=== PATIENT | female | born 1975 | race Hispanic/Latino ===

== ENCOUNTER 2020-08-26 14:51 | Emergency (ER) | payer OTHER ==
[~2020-08-26] VITALS: Ht 160 cm; Wt 68.0 kg
[2020-08-26] MEDS ORDERED: SODIUM CHLORIDE 0.9% 1000ML 1,000 ML IV STA ×2 (15:01→15:45)
[2020-08-26 15:21] LABS: BASOPHILS # (AUTO) 0.1 (0.0-0.1); BASOPHILS % 0.6 % (0.0-1.0); EOSINOPHILS % 0.1 % (0.0-6.0); HEMATOCRIT 41.9 % (34.2-44.1); HEMOGLOBIN 13.3 g/dL (12.0-16.0); LYMPHOCYTES # (AUTO) 1.9 (1.0-3.2); LYMPHOCYTES % 22.4 % (18.0-39.1); MEAN CORPUSCULAR HEMOGLOBIN 25.5 pg (28-32); MEAN CORPUSCULAR HGB CONC 31.7 g/dL (31-35); MEAN CORPUSCULAR VOLUME 80.3 fL (81-99); MONOCYTES # (AUTO) 0.4 (0.2-0.8); NEUTROPHILS # (AUTO) 6.2 (2.1-6.9); NEUTROPHILS % 71.7 % (38.7-80.0); PLATELET COUNT 438 x10e3/uL (140-360); RED BLOOD COUNT 5.22 x10e6/uL (3.6-5.1)
[2020-08-26 15:42] LABS: ALANINE AMINOTRANSFERASE 15 IU/L (0-55); ALBUMIN 4.6 g/dL (3.5-5.0); ALKALINE PHOSPHATASE 109 IU/L (40-150); ANION GAP 17.7 mmol/L (8-16); BLOOD UREA NITROGEN 7 mg/dL (7-26); BUN/CREATININE RATIO 9 (6-25); CALCIUM 9.7 mg/dL (8.4-10.2); CARBON DIOXIDE 20 mmol/L (22-29); CHLORIDE 107 mmol/L (98-107); CREATINE KINASE 45 IU/L (29-168); CREATININE, SERUM 0.75 mg/dL (0.57-1.11); EST GLOMERULAR FILTRATION RATE > 60 ML/MIN (60-); GLUCOSE 107 mg/dL (74-118); POTASSIUM 3.7 mmol/L (3.5-5.1); SODIUM 141 mmol/L (136-145)
[2020-08-26 16:11] LABS: CLARITY,URINE SL CLOUDY (CLEAR); COLOR,URINE YELLOW (YELLOW); KETONES,URINE NEGATIVE (NEGATIVE); LEUKOCYTE ESTERASE ,URINE NEGATIVE (NEGATIVE); NITRITE,URINE NEGATIVE (NEGATIVE); PROTEIN,URINE DIPSTICK NEGATIVE (NEGATIVE); URINE UROBILINOGEN 0.2 mg/dL (0.2 - 1)
[2020-08-26 16:28] LABS: BACTERIA,URINE RARE /HPF; EPITHELIAL CELLS,URINE MODERATE /LPF; RENAL EPITHELIAL CELLS,URINE FEW
[2020-08-26] MEDS ORDERED: PIPERACILLIN/TAZOBAC 3.375 GM in SODIUM CHLORIDE 0.9% 50ML 50 ML IV SCH (16:30)
[2020-08-26] MEDS ORDERED: SODIUM CHLORIDE 0.9% 50ML 50 ML ONE (17:02)
[2020-08-26] MEDS ORDERED: IOPAMIDOL 370 MG/ML 200 ML INFUS..BTL INJ ONE (17:02)
== END 2020-08-26 20:00 | disposition home or self-care (01) ==
LOC: ER 14:55
DX: R00.0 Tachycardia, unspecified (principal); R30.0 Dysuria; R10.13 Epigastric pain; Z20.822 Contact with and (suspected) exposure to COVID-19
CPT/HCPCS: 36415; 71045; 74177; 80053; 81001; 82550; 82553; 83605; 83880; 84484; 84702; 85025; 85379; 87040; 87086; 93005; 99284; J2543; J7030; Q9967; U0002